=== PATIENT | male | born 1950 | race Caucasian/White ===

== ENCOUNTER 2020-08-22 09:34 | Day surgery (SDC) | payer SELFPAY ==
--- NOTE | 2020-08-22 | PATH_ITS ---
[facility] Accession Number: [id number] . 01 Material submitted: . colon - COLON POLYP BIOPSY AT 55 CM . 01 Clinical history: . SDC . 02 Diagnosis: Colon Polyp at 55 cm, Biopsy: Tubular adenoma. MRV 08/27/2020 1023 Local . 02 Electronically signed: . Keith Crum MD, PhD, Pathologist NPI- [id number] . 01 Gross description: . The specimen is received in formalin, labeled colon polyp at 55 cm and consists of three holman-pink fragments of soft tissue, measuring 0.4 x 0.3 x 0.2 cm in aggregate. The specimen is entirely submitted in cassette A1. ([id number]) /[facility] 08/23/2020 1542 Local . 02 Pathologist provided ICD-10: D12.6 . 02 CPT . 610957 Performed at: 01 [facility] [address] [facility][note 3], [place], [place] [id number] MD Denny Leal MD Phone: [phone] Performed at: 02 [facility] [place] [address] [place], [place] [id number] MD Breana Suh MD Phone: [phone]
[2020-08-22] MEDS: LACTATED RINGERS 1,000 ML 200 ML IV (09:51)
[2020-08-22 09:56] VITALS: BP 162/90; PULSE 80; RESP 16; TEMP 36.6; O2SAT 98; BMI 27.6
--- NOTE | 2020-08-22 11:51 | PM.HP.1 ---
History of Present Illness History of Present Illness Date Patient Seen: 08/22/20 Time Patient Seen: 11:51 Chief complaint: SDC *Self Pay* Collect $[phone] or $[phone] Narrative: The patient is a gentleman here for screening colonoscopy. Last exam was about 8 years ago. Patient History Surgical History (Updated 08/22/20 @ 11:52 by Tod Rebolledo MD) H/O right inguinal hernia repair Family & Social History Tobacco & Substance use: Smoking Status Never smoker alcohol intake frequency 0-2 drinks per day Substance Use Type former substance user Meds Home Medications and Allergies Home Medications Medication Instructions Recorded Confirmed Type No Known Home Medications 08/22/20 08/22/20 History Allergies Allergy/AdvReac Type Severity Reaction Status Date / Time No Known Drug Allergies Allergy Verified 08/22/20 09:51 Review of Systems Review of Systems ROS: Yes All systems reviewed with the patient and are negative except as otherwise documented Exam Vital Signs (past 8 hours): - 08/22/20 09:56 Temperature 97.9 F Pulse Rate 80 Respiratory Rate 16 Blood Pressure 162/90 H Pulse Oximetry 98 Oxygen Delivery Method Room Air Narrative Exam Narrative: Pleasant cooperative patient no apparent distress. Lungs are clear to auscultation. No rales or rhonchi. Heart regular rate and rhythm no murmur gallop. Abdomen is soft nontender without mass. No obvious hernias. Patient is alert and oriented x3. Assessment & Plan Assessment & Plan narrative: The patient for a screening colonoscopy. I have discussed the procedure with them. Risks of bleeding, perforation which would necessitate major operation, failure to find remove all lesions, the potential tattoo were all discussed. All questions were answered. They wished to proceed.
--- NOTE | 2020-08-22 11:54 | PM.PREOP ---
Pre-operative Note COVID-19 COVID-19 status: Negative Result date/Date tested (Pos, Neg/Pending): 08/21/20 Interval Note History & Physical reviewed/Exam performed by Physician: Yes Changes to H&P: No ASA Class (for procedural sedation): I
[2020-08-22] MEDS: MIDAZOLAM 5 MG/5 ML VIAL IV (11:55)
[2020-08-22] MEDS: fentaNYL 250 MCG/5 ML INJ IV (11:56)
--- NOTE | 2020-08-22 12:25 | PM.OP.ENDO ---
Operative Date/Time/Diagnoses Date of procedure: 08/22/20 Time of procedure: 12:25 Pre-op diagnosis: Screening examination. Last exam 8 years ago. Patient has a history of polyps. Post-op diagnosis: same (Marginal prep. Remove 1 small polyp at 55 cm from the anal verge. Sigmoid diverticulosis.) Procedure & Clinicians Study performed: Colonoscopy with cold biopsy Same procedure as scheduled: Yes Indications: Screening Procedure Notes SCOAP/Timeout: Performed Procedure in detail: The patient was placed in the left lateral decubitus position and underwent IV sedation directed by the surgeon consisting of fentanyl and Versed. Digital exam was remarkable for an absent prostate. The scope was inserted and advanced through the rectum into the sigmoid, descending, transverse, and ascending colon. The patient was repositioned in order to make her way into the cecum.. The cecum was reached identified by the ileocecal valve and the appendiceal opening. The scope was gradually brought out. One small Polyp was found at 55 cm from the anal verge was biopsied and completely removed. The scope ultimately was retroflexed in the rectum. The appearance was remarkable for some minor scarring on small hemorrhoids.. The scope was removed and the patient tolerated the procedure well. The prep was adequate for seeing lesions over 5 mm but fine mucosal detail was lost in large parts of the colon due to small particulate stool adherent to the wall. Because of this I would recommend this test be repeated in 3 years. Scope withdrawal time: 10 minutes(13 total) Sedation minutes: 27 Findings: diverticulosis (Sigmoid) and polyp (Small polyp at 55 cm) Specimen(s): other (Polyp) Complications: none Post-procedure Recommendations: Colonscopy in 3 years Follow up: as needed Disposition: PACU
[2020-08-22 12:28] VITALS: BP 132/81; PULSE 83; RESP 12; TEMP 37.5; O2SAT 95
[2020-08-22 12:33] VITALS: BP 124/77; PULSE 79; RESP 13; O2SAT 94
[2020-08-22 12:38] VITALS: BP 123/78; PULSE 96; RESP 15; O2SAT 94
[2020-08-22 12:44] VITALS: BP 133/82; PULSE 78; RESP 16; TEMP 37.2; O2SAT 95
--- NOTE | 2020-08-22 13:02 | SUR.PHASEII ---
Pt met discharge criteria: VSS, denied pain or nausea, able to drink fluids without difficulty. Discharge instructions discussed, all questions answered. Transported via W\C to private vehicle.
== END 2020-08-22 12:59 | disposition home or self-care (01) ==
PROVIDERS: Family Provider Family Medicine; PCP Family Medicine; Referring Provider Specialist; Visit Provider Specialist
PROC: 0DJD8ZZ Inspection of Lower Intestinal Tract, Via Natural or Artificial Opening Endoscopic (ICD-10-PCS; CPT 45378; principal; 2020-08-22 10:45)
DX: Z12.11 Encounter for screening for malignant neoplasm of colon (principal); K57.30 Diverticulosis of large intestine without perforation or abscess without bleeding
CPT/HCPCS: 45380; 99152; 99153; J2250; J3010